=== PATIENT | female | born 1955 | race Caucasian/White ===

== ENCOUNTER 2024-02-13 13:48 | Outpatient (CLI) | payer MEDICARE, SELFPAY ==
[2024-02-13 17:48] LABS: Alanine Aminotransferase 44 U/L (12-78); Albumin Level 3.7 g/dl (3.5-5.0); Albumin/Globulin Ratio 0.9 (1.1-1.8); Alkaline Phosphatase 84 U/L (38-126); Anion Gap 12.8 mEq/L (5-15); Aspartate Amino Transferase 75 U/L (14-36); Bilirubin,Total 0.8 mg/dl (0.2-1.3); Blood Urea Nitrogen 6 mg/dl (7-17); Calcium 8.8 mg/dl (8.4-10.2); Carbon Dioxide 28 mmol/L (22.0-30.0); Chloride 98 mmol/L (98-107); Chol/HDL Ratio 4.6 (1-3.5); Cholesterol 187 mg/dl (140-200); Estimated Glomerular Filt Rate 123 ml/min (>60); GFR (African American) 149 ML/MIN (>60); HDL Cholesterol 41 mg/dl (40-60); Magnesium 1.7 mg/dl (1.6-2.3); Potassium 3.8 mmoL/L (3.5-5.1); Sodium 135 mmol/L (136-145); Total Protein,Serum 7.7 g/dl (6.3-8.2); Triglycerides 116 mg/dl (30-150); VLDL Cholesterol 23 mg/dL (0-40)
[2024-02-13 17:52] LABS: Hemoglobin A1C 11.5 % (4.0-6.0)
[2024-02-13 18:00] LABS: Direct LDL Cholesterol 119.73 mg/dL (100-129)
[2024-02-13 19:34] LABS: Ferritin 6.08 ng/ml (11.1-264)
[2024-02-13 21:42] LABS: Thyroid Stimulating Hormone 1.14 uIU/mL (0.465-4.68)
[2024-02-13 22:01] LABS: Vitamin B12 622 pg/mL (239-931)
[2024-02-13 23:04] LABS: Glucose 423 mg/dl (74-100)
== END 2024-02-13 23:59 | disposition home or self-care (01) ==
LOC: LAB.DROPOF 02-14 10:28
PROVIDERS: PCP Nurse Practitioner Family; Visit Provider Nurse Practitioner Family
DX: E11.9 Type 2 diabetes mellitus without complications (principal); L65.9 Nonscarring hair loss, unspecified; I10 Essential (primary) hypertension; R05.1 Acute cough; J02.9 Acute pharyngitis, unspecified
CPT/HCPCS: 80053; 80061; 82043; 82607; 82728; 83036; 83735; 84443; 87635